=== PATIENT | female | born 1945 | race Asian ===

== ENCOUNTER 2017-07-26 12:37 | Outpatient (RCR) | payer MEDICARE, OTHER | END 2017-10-24 | LOC: WSPT | DX: M54.5 Low back pain (principal) ==

== ENCOUNTER → 2020-09-09 | Outpatient (CLI) | payer MEDICARE, OTHER | LOC: COL.RAD 09-03 10:00 | DX: K21.9 Gastro-esophageal reflux disease without esophagitis (principal); K22.4 Dyskinesia of esophagus ==

== ENCOUNTER → 2020-12-02 | Outpatient (CLI) | payer MEDICARE, OTHER | LOC: COL.PUL 12:18 | DX: I35.1 Nonrheumatic aortic (valve) insufficiency (principal); Z87.891 Personal history of nicotine dependence | CPT/HCPCS: J7674 ==